=== PATIENT | male | born 2005 | race African-American/Black ===

== ENCOUNTER 2023-12-08 13:54 | Emergency (ER) | payer SELFPAY ==
[2023-12-08 14:15] VITALS: TEMP 98; BMI 18.4
[2023-12-08 15:00] LABS: BASO % 0.7 % (0-2.0); EOS % 2.7 % (0-4.5); HEMATOCRIT 40.7 % (35.4-49); HEMOGLOBIN 13.6 GM/dL (11.7-16.9); LYMPH % 30.7 % (8-40); MCHC 33.4 g/dl (32.0-35.9); MEAN CELL VOLUME 83.9 fl (80-96); MEAN PLT VOLUME 7.2 fl (7.5-11.1); MONO % 8.3 % (3.8-10.2); NEUT % 57.6 % (42.8-82.8); PLATELET COUNT 230 10^3/uL (134-434); RBC 4.86 M/mm3 (4.00-5.60); RDW 14.9 % (11.9-15.9); WHITE BLOOD COUNT 3.7 K/mm3 (4.0-10.0)
[2023-12-08] MEDS: LACTATED RINGERS SOLUTION 1000 ML INFUS.BAG IV ONE (15:16)
[2023-12-08 15:30] LABS: POTASSIUM 4.2 mmol/L (3.5-5.1)
[2023-12-08 15:32] LABS: CALCIUM 8.9 mg/dL (8.5-10.1)
[2023-12-08 15:33] LABS: ALBUMIN 3.6 g/dl (3.4-5.0); BLOOD UREA NITROGEN 10.5 mg/dL (7-18); MAGNESIUM 2.4 mg/dL (1.8-2.4)
[2023-12-08 15:36] LABS: CREATININE 0.9 mg/dL (0.55-1.3); PHOSPHOROUS 2.7 mg/dL (2.5-4.9)
[2023-12-08 15:37] LABS: BILIRUBIN,TOTAL 0.4 mg/dL (0.2-1)
[2023-12-08 16:34] VITALS: BP 131/72; PULSE 63; RESP 20
== END 2023-12-08 16:34 | disposition home or self-care (01) ==
LOC: JER 13:54
DX: R55 Syncope and collapse (principal); R42 Dizziness and giddiness
CPT/HCPCS: 36415; 71046-TC-FY; 80053; 82962; 83735; 84100; 84484; 85025; 93005; 93010; 99285-25